=== PATIENT | female | born 1945 | race Caucasian/White ===

== ENCOUNTER 2017-01-14 08:15 | Outpatient (CLI) | payer OTHER ==
--- NOTE | 2017-01-14 17:32 | DIAGNOSTIC IMAGING REPORT ---
PROCEDURE: MR LOWER EXT JOINT WO CONT-RT INDICATION: Right hip pain 1 month after fall. TECHNIQUE: T1 and STIR coronal images of the pelvis and hips. PD and FAT-SAT PD sagittal, axial, coronal high-resolution images of the right hip. COMPARISON: None. FINDINGS: There is soft tissue and edema of the supra trochanteric region with a 2 cm of fluid collection cranial to the greater trochanter. Findings are associated with post-traumatic tendinosis of the gluteus medius, gluteus minimus, and piriformis tendons, although these tendons appear intact. 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 Findings suggest probable tear of the anterior superior cartilaginous labrum. Osseous structures of the right hip are normal. There is no evidence of an occult fracture. Pelvis and left hip appear normal. Probable hysterectomy. 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 IMPRESSION: 1. Soft tissue injury of the supra trochanteric region with tendinosis and super trochanteric bursitis (2 cm fluid collection). 2. 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 3. No evidence of fracture.
== END 2017-01-14 23:00 | disposition home or self-care (01) ==
LOC: MRI SRH 08:15
DX: M70.61 Trochanteric bursitis, right hip (principal)